=== PATIENT | female | born 1990 | race Hispanic/Latino ===

== ENCOUNTER 2017-05-29 18:22 | Emergency (ER) | payer BC ==
[~2017-05-29] VITALS: Ht 157.5 cm; Wt 102.1 kg
--- OUTSIDE RECORDS SUMMARY | 2017-05-29 18:25 | XMS REPORT | Clinical Summary ---
Author Author [facility] Address Unknown Phone Unavailable Care Team Providers Care Parking Meter Servicer Name Role Phone PCP Unavailable Allergies No Known Allergies Current Medications No known medications Active Problems Not on file Family History Medical History Relation Name Comments Unremarkable Father Unremarkable Mother Diabetes Sister Relation Name Status Comments Father Mother Sister Social History Tobacco Use Types Packs/Day Years Used Date Never Smoker Smokeless Tobacco: Never Used Alcohol Use Drinks/Week oz/Week Comments No Sex Assigned at Date Recorded Not on file Last Filed Vital Signs Not on file Plan of Treatment Not on file Results Not on fileafter 05/28/2016
[2017-05-29] MEDS ORDERED: SODIUM CHLORIDE 0.9% 1000ML 1,000 ML IV SCH (18:45)
[2017-05-29] MEDS ORDERED: ONDANSETRON HCL 4 MG ORAL DISINTEGRATING TAB PO ONE (19:00)
[2017-05-29] MEDS ORDERED: PROMETHAZINE HCL (IM) 25 MG/ML VIAL IM ONE (19:30)
[2017-05-29] MEDS ORDERED: PHENERGAN SUPP25 MG PO (19:51)
[2017-05-29] MEDS ORDERED: ZOFRAN ODT4 MG SL (19:51)
[2017-05-29] MEDS ORDERED: KETOROLAC TROMETHAMINE 30 MG/ML VIAL IV ONE (20:15)
[2017-05-29 20:27] VITALS: BP 110/70
== END 2017-05-29 20:29 | disposition home or self-care (01) ==
LOC: FSED 18:22
DX: R50.9 Fever, unspecified (principal); R11.2 Nausea with vomiting, unspecified; B34.9 Viral infection, unspecified
CPT/HCPCS: 80048; 81003; 81025; 85025; 87400; 96360; 96365; 99283; J1885; J2550

== ENCOUNTER 2017-07-05 13:24 | Emergency (ER) | payer OTHER, BC ==
[~2017-07-05] VITALS: Ht 157.5 cm; Wt 99.3 kg
[~2017-07-05 13:24] MED LIST: PHENERGAN SUPP25 MG PO; ZOFRAN ODT4 MG SL
[2017-07-05 15:58] VITALS: BP 114/64
== END 2017-07-05 16:00 | disposition home or self-care (01) ==
LOC: FSED 13:24
DX: O20.9 Hemorrhage in early pregnancy, unspecified (principal); R10.32 Left lower quadrant pain
CPT/HCPCS: 51701; 76830; 81025; 99283

== ENCOUNTER 2018-02-20 21:44 | Emergency (ER) | payer BC, OTHER ==
[~2018-02-20] VITALS: Ht 157.5 cm; Wt 104.3 kg
--- NOTE | 2018-02-20 23:06 | Diagnostic Imaging Report ---
CXR 2 VIEW - HOPD, Technique: CXR 2 VIEW - HOPD Comparison: None Clinical history: , fever DISCUSSION: The heart size is upper limits of normal. No consolidation or edema. No effusion or pneumothorax. IMPRESSION: No acute abnormality Signed by: Dr Marni Luevano MD on 02/20/2018 11:03 PM
== END 2018-02-20 23:25 | disposition home or self-care (01) ==
LOC: FSED 21:44
DX: B37.2 Candidiasis of skin and nail (principal); E03.9 Hypothyroidism, unspecified
CPT/HCPCS: 71046; 80048; 81003; 85025; 87040; 99283

== ENCOUNTER 2018-12-20 14:39 | Emergency (ER) | payer BC, OTHER ==
[~2018-12-20] VITALS: Ht 157.5 cm; Wt 98.0 kg
--- OUTSIDE RECORDS SUMMARY | 2018-12-20 14:42 | XMS REPORT ---
Author Author [facility] Address Unknown Phone Unavailable Care Team Providers Care Delivery Recruiter Name Role Phone CAT VYAS Unavailable Unavailable FRANCISCO HERNANDEZ Unavailable Unavailable THEE HAGEN Unavailable Unavailable Problems This patient has no known problems. Allergies, Adverse Reactions, Alerts This patient has no known allergies or adverse reactions. Medications This patient has no known medications. Results Test Description Test Time Test Comments Text Results Atomic Results Result Comments CXR 2 VIEW - HOPD 2018-02-20 23:01:00 [place] [address] Patient Name: SCARLET MARIE MR #: [id number] : 1990 Age/Sex: 27/F Req #: [id number] Adm Physician: Ordered by: CAT VYAS MD Report #: [id number] Location: [facility] Room/Bed: Procedure: [id number] HOPD/CXR 2 VIEW - HOPD Exam Date: 02/20/18 Exam Time: 2227 REPORT STATUS: Signed CXR 2 VIEW - HOPD, Technique: CXR 2 VIEW - HOPD Comparison: None Clinical history: , fever DISCUSSION: The heart size is upper limits of normal. No consolidation or edema. No effusion or pneumothorax. IMPRESSION: No acute abnormality Signed by: Dr Zackery Luevano MD on 02/20/2018 11:03 PM Dictated By: ZACKERY LUEVANO MD 02 Transcribed By: BESSIE on 02/20/182302 COPY TO: CAT VYAS MD HCG, QUANTITATIVE, 2017-06-22 18:38:00 GONADOTROPIN, CHORIONIC (HCG) QUANT (EARLE) (test tljl=341) 84 mIU/mL 0-10 Non- Females: <10 mIU/mL Females: Gestation Age Reference Range(mIU/mL) 0.2-1 Week 5-50 1-2 Weeks 50-500 2-3 Weeks 100-5,000 3-4 Weeks 500-10,000 4-5 Weeks 1,000-50,000 5-6 Weeks 10,000-100,000 6-8 Weeks 15,000-200,000 2-3 Months 10,000-100,000 U/S, ENDOVAGINAL, PREG [id number] 17:45:00Reason for exam:-> PROBLEMFINAL REPORT Pelvic ultrasound, first trimester , 06/22/2017. History: , pelvic pain, vaginal spotting. Comparison: None available. Discussion: Transabdominal and transvaginal evaluation of the pelvis was performed in the transverse and longitudinal planes. Color Doppler and spectral waveform analysis was performed of the adnexa bilaterally. The uterus is mildly enlarged measuring 6.5 x 2.6 x 6.1 cm. A hypoechoic anterior intramural mass is noted in the anterior uterine body measuring 2.5 x 2.4 x 2.1 cm. No i ntrauterine gestational sac is visible. Endometrial stripe measures 1.1 cm. The right ovary measures 2.5 x 1.8 x 1.7 cm. The left ovary measures 4.7 x 2.4 x 3.4 cm. Normal arterial and venous flow is identified within both ovaries. There is no evidence of an adnexal mass. There is a small amount of free fluid in the cul-de-sac. IMPRESSION: 1. Uterine fibroid noted.2. No visible intrauterine gestational sac or evidence of ectopic , which may be secondary to very early intrauterine , but ectopic cannot be excluded. Recomm end following serial beta hCGs and short-term follow-up ultrasound if clinically indicated. Signed: Chuck Yangort Verified Date/Time: 06/22/2017 17:4 5:09 Reading Location: [facility] B1 C013W Consult Reading Room Electronically sign ed by: CHUCK YANG M.D. on 06/22/2017 05:45 PM U/S, , FIRST [id number] 17:45:00Reason for exam:-> PROBLEMFINAL REPORT Pelvic ultrasound, first trimester , 06/22/2017. History: , pelvic pain, vaginal spotting. Comparison: None available. Discussion: Transabdominal and transvaginal evaluation of the pelvis was performed in the transverse and longitudinal planes. Color Doppler and spectral waveform analysis was performed of the adnexa bilaterally. The uterus is mildly enlarged measuring 6.5 x 2.6 x 6.1 cm. A hypoechoic anterior intramural mass is noted in the anterior uterine body measuring 2.5 x 2.4 x 2.1 cm. No i ntrauterine gestational sac is visible. Endometrial stripe measures 1.1 cm. The right ovary measures 2.5 x 1.8 x 1.7 cm. The left ovary measures 4.7 x 2.4 x 3.4 cm. Normal arterial and venous flow is identified within both ovaries. There is no evidence of an adnexal mass. There is a small amount of free fluid in the cul-de-sac. IMPRESSION: 1. Uterine fibroid noted.2. No visible intrauterine gestational sac or evidence of ectopic , which may be secondary to very early intrauterine , but ectopic cannot be excluded. Recomm end following serial beta hCGs and short-term follow-up ultrasound if clinically indicated. Signed: Chuck Yang MDReport Verified Date/Time: 06/22/2017 17:4 5:09 Reading Location: [facility] B1 C013W Consult Reading Room Electronically sign ed by: CHUCK YANG M.D. on 06/22/2017 05:45 PM U/S, DUPLEX, DOPPLER 2017-06-22 17:45:00Reason for exam:-> PROBLEMFINAL REPORT Pelvic ultrasound, first trimester , 06/22/2017. History: , pelvic pain, vaginal spotting. Comparison: None available. Discussion: Transabdominal and transvaginal evaluation of the pelvis was performed in the transverse and longitudinal planes. Color Doppler and spectral waveform analysis was performed of the adnexa bilaterally. The uterus is mildly enlarged measuring 6.5 x 2.6 x 6.1 cm. A hypoechoic anterior intramural mass is noted in the anterior uterine body measuring 2.5 x 2.4 x 2.1 cm. No i ntrauterine gestational sac is visible. Endometrial stripe measures 1.1 cm. The right ovary measures 2.5 x 1.8 x 1.7 cm. The left ovary measures 4.7 x 2.4 x 3.4 cm. Normal arterial and venous flow is identified within both ovaries. There is no evidence of an adnexal mass. There is a small amount of free fluid in the cul-de-sac. IMPRESSION: 1. Uterine fibroid noted.2. No visible intrauterine gestational sac or evidence of ectopic , which may be secondary to very early intrauterine , but ectopic cannot be excluded. Recomm end following serial beta hCGs and short-term follow-up ultrasound if clinically indicated. Signed: Chuck Yang [facility] Verified Date/Time: 06/22/2017 17:4 5:09 Reading Location: [facility] B1 C013W Consult Reading Room Electronically sign ed by: CHUCK YANG M.D. on 06/22/2017 05:45 PM URINALYSIS W/ REFLEX URINE [id number] 15:17:00* Test Item Value Reference Range Comments COLOR (BEAKER) (test tkre=056) Yellow CLARITY (BEAKER) (test naev=225) Cloudy SPECIFIC GRAVITY UA (BEAKER) (test dyzw=739) 1.025 1.001-1.035 PH UA (BEAKER) (test ilty=215) 5.5 5.0-8.0 PROTEIN UA (BEAKER) (test fedt=101) Trace Negative GLUCOSE UA (BEAKER) (test nydm=808) Negative Negative KETONES UA (BEAKER) (test zoux=105) Negative Negative BILIRUBIN UA (BEAKER) (test bnia=530) Negative Negative BLOOD UA (BEAKER) (test pcoq=894) Negative Negative NITRITE UA (BEAKER) (test ikww=167) Negative Negative LEUKOCYTE ESTERASE UA (BEAKER) (test hkwg=365) Negative Negative UROBILINOGEN UA (BEAKER) (test umme=824) 0.2 mg/dL 0.2-1.0 BACTERIA (BEAKER) (test wjie=709) Many MUCUS (BEAKER) (test ekeg=8823) Moderate RBC UA-MANUAL (BEAKER) (test iain=5529) <5 /HPF WBC UA-MANUAL (BEAKER) (test lney=0067) 5-10 /HPF SQUAMOUS EPITHELIAL MANUAL (BEAKER) (test ragr=0976) 50-100 /HPF SOURCE(BEAKER) (test vqyd=0875) SCREEN, [id number] 15:10:00* Test Item Value Reference Range Comments TEST URINE (BEAKER) (test yfcj=792) Positive URINALYSIS W/ [id number] 17:30:00* Test Item Value Reference Range Comments COLOR (BEAKER) (test hhcr=029) Yellow CLARITY (BEAKER) (test dqlj=143) Cloudy SPECIFIC GRAVITY UA (BEAKER) (test szlt=550) 1.020 1.001-1.035 PH UA (BEAKER) (test xira=601) 7.0 5.0-8.0 PROTEIN UA (BEAKER) (test ulqx=267) Negative Negative GLUCOSE UA (BEAKER) (test huti=111) Negative Negative KETONES UA (BEAKER) (test spub=621) Negative Negative BILIRUBIN UA (BEAKER) (test tbdi=032) Negative Negative BLOOD UA (BEAKER) (test qxtg=959) Trace Negative NITRITE UA (BEAKER) (test rwva=350) Negative Negative LEUKOCYTE ESTERASE UA (BEAKER) (test zxyh=247) Negative Negative UROBILINOGEN UA (BEAKER) (test kyhk=518) 0.2 mg/dL 0.2-1.0 BACTERIA (BEAKER) (test weah=890) Many MUCUS (BEAKER) (test tvoz=1575) Few RBC UA-MANUAL (BEAKER) (test ykvc=7395) 5-10 /HPF WBC UA-MANUAL (BEAKER) (test blbd=0279) 10-20 /HPF SQUAMOUS EPITHELIAL MANUAL (BEAKER) (test stnm=5699) 20-50 /HPF Clue cells present SOURCE(BEAKER) (test uyzp=9275) SCREEN, [id number] 17:23:00* Test Item Value Reference Range Comments TEST URINE (BEAKER) (test txbi=477) Negative RAD, CHEST, 2 [id number] 17:07:00Reason for exam:->COUGHReason for exam:-> MUSCLE PAINReason for exam:->left chest painIs the patient ?->NoShould this be performed at the bedside?->NoFINAL REPORT TECHNIQUE: Frontal and lateral chest radiographs dated 05/31/2017. CLINICAL HISTORY: Cough, muscle pain COMPARISON STUDY: Chest radiograph dated 05/25/2015 FINDINGS: Lungs are clear. No pleural effusion or pneumothorax. Cardiomediastinal silhouette is normal in size. No pulmonary edema. No bone or soft tissue abnormalities are seen. IMPRESSION: Normal chest radiographs. Signed: Tatiana Santiagoepnuris Verified Date/Time: 05/31/2017 17:07:27 Reading Location: [facility] Radiology Reading Room
== END 2018-12-20 15:56 | disposition home or self-care (01) ==
LOC: FSED 14:39
DX: R50.9 Fever, unspecified (principal); R05 Cough; J02.0 Streptococcal pharyngitis; B34.9 Viral infection, unspecified
CPT/HCPCS: 83518; 87400; 99282

== ENCOUNTER 2022-04-08 12:49 | Emergency (ER) | payer BC ==
[~2022-04-08] VITALS: Ht 157.5 cm; Wt 102.5 kg
[2022-04-08] MEDS ORDERED: ACETAMINOPHEN 325 MG TAB ONE (13:19)
[2022-04-08] MEDS ORDERED: PROVENTIL HFA6.7 GM INH (13:46)
[2022-04-08] MEDS ORDERED: CORICIDIN COLD1 EACH PO (13:49)
[2022-04-08] MEDS ORDERED: AMOXICILLIN500 MG PO (13:49)
[2022-04-08] MEDS ORDERED: ACETAMINOPHEN 325 MG TAB PO ONE (14:00)
== END 2022-04-08 14:14 | disposition home or self-care (01) ==
LOC: FSED 12:58
DX: R05.9 Cough, unspecified (principal); J06.9 Acute upper respiratory infection, unspecified
CPT/HCPCS: 71046; 83518; 87400; 99283

== ENCOUNTER 2023-12-31 10:05 | Emergency (ER) | payer BC ==
[~2023-12-31] VITALS: Ht 157.5 cm; Wt 56.2 kg
[~2023-12-31 10:05] MED LIST changes: +AMOX TR-K CLV1 EAC2 PO; +AMOXICILLIN500 MG PO; +CORICIDIN COLD1 EACH PO; +ONDANSETRON ODT4 MG PO; +PANTOPRAZOLE SO40 MG PO; +PROVENTIL HFA6.7 GM INH
[2023-12-31 10:10] VITALS: PULSE 55; RESP 18; TEMP 98.6
[2023-12-31] MEDS ORDERED: IOPAMIDOL 370 MG/ML 100 ML INFUS..BTL INJ ONE (11:06)
[2023-12-31] MEDS ORDERED: KETOCONAZOLE15 GM TOP (13:24)
[2023-12-31 13:46] VITALS: BP 109/59; PULSE 64; RESP 18; TEMP 98.3; O2SAT 100
== END 2023-12-31 13:50 | disposition home or self-care (01) ==
LOC: FSED 10:11
DX: K42.9 Umbilical hernia without obstruction or gangrene (principal); B35.4 Tinea corporis; Z98.84 Bariatric surgery status
CPT/HCPCS: 74177; 80053; 81003; 81025; 85025; 87071; 87086; 87186; 87205; 99283; Q9967

== ENCOUNTER 2024-03-14 09:24 | Emergency (ER) | payer BC ==
[~2024-03-14] VITALS: Ht 157.5 cm; Wt 55.5 kg
[~2024-03-14 09:24] MED LIST changes: +KETOCONAZOLE15 GM TOP
[2024-03-14] MEDS: KETOROLAC TROMETHAMINE 30 MG/ML VIAL IV ONE (10:13)
[2024-03-14] MEDS: ONDANSETRON HCL INJ 2MG/ML 2ML 2 MG/ML VIAL IV ONE (10:13)
[2024-03-14] MEDS: FAMOTIDINE 20 MG/2 ML VIAL IV ONE (10:13)
[2024-03-14] MEDS ORDERED: IOPAMIDOL 370 MG/ML 100 ML INFUS..BTL INJ ONE (10:39)
[2024-03-14] MEDS ORDERED: LACTATED RINGER'S 1,000 ML ONE (10:56)
[2024-03-14] MEDS: LACTATED RINGER'S 1,000 ML INJ ONE (11:02)
[2024-03-14] MEDS ORDERED: ONDANSETRON ODT4 MG PO (12:44)
[2024-03-14] MEDS ORDERED: CEFDINIR300 MG PO (12:44)
[2024-03-14] MEDS ORDERED: SENNA LAXATIVE8.6 MG PO (12:44)
[2024-03-14] MEDS ORDERED: FLEET ENEMA133 ML PR (12:44)
[2024-03-14] MEDS ORDERED: LACTULOSE20 GM/30 M PO (12:44)
[2024-03-14 13:01] VITALS: PULSE 63; RESP 14; TEMP 98.5; O2SAT 100
== END 2024-03-14 13:01 | disposition home or self-care (01) ==
LOC: FSED 09:33
DX: K59.00 Constipation, unspecified (principal); N39.0 Urinary tract infection, site not specified; R10.9 Unspecified abdominal pain; R11.2 Nausea with vomiting, unspecified; Z98.84 Bariatric surgery status
CPT/HCPCS: 74177; 80053; 81003; 81025; 85025; 96374; 96375; 99284; J0696; J1885; J2405; J7121; Q9967

== ENCOUNTER 2024-09-04 08:31 | Emergency (ER) | payer BC ==
[~2024-09-04] VITALS: Ht 157.5 cm; Wt 54.6 kg
[~2024-09-04 08:31] MED LIST changes: +CEFDINIR300 MG PO; +FLEET ENEMA133 ML PR; +LACTULOSE20 GM/30 M PO; +SENNA LAXATIVE8.6 MG PO
[2024-09-04 08:35] VITALS: PULSE 76; RESP 16; TEMP 98.9
[2024-09-04] MEDS: TRIMETHOPRIM/SULFAMETHOXAZOLE 160-800 MG TAB PO ONE (08:58)
[2024-09-04] MEDS ORDERED: ACETAMINOPHEN-1 EAC4 PO (09:58)
[2024-09-04] MEDS ORDERED: BACTRIM DS TAB1 EACH PO (09:58)
[2024-09-04] MEDS ORDERED: IBUPROFEN600 MG PO (09:58)
[2024-09-04 10:12] VITALS: BP 94/51; PULSE 66; RESP 16; TEMP 98.7; O2SAT 98
== END 2024-09-04 10:11 | disposition home or self-care (01) ==
LOC: FSED 08:34
DX: R10.31 Right lower quadrant pain (principal); N39.0 Urinary tract infection, site not specified; R31.9 Hematuria, unspecified; R30.0 Dysuria; Z98.84 Bariatric surgery status
CPT/HCPCS: 74176; 81003; 81025; 99284

== ENCOUNTER 2024-09-06 21:29 | Emergency (ER) | payer BC ==
[~2024-09-06] VITALS: Ht 157.5 cm; Wt 54.0 kg
[~2024-09-06 21:29] MED LIST changes: +ACETAMINOPHEN-1 EAC4 PO; +BACTRIM DS TAB1 EACH PO; +IBUPROFEN600 MG PO
[2024-09-06] MEDS: KETOROLAC TROMETHAMINE 30 MG/ML VIAL IV STA (22:24)
[2024-09-06] MEDS: ONDANSETRON HCL INJ 2MG/ML 2ML 2 MG/ML VIAL IV STA (22:24)
[2024-09-06] MEDS: CEFTRIAXONE 1 GM VIAL IV ONE (22:24)
[2024-09-06] MEDS: ACETAMINOPHEN 325 MG TAB PO ONE (22:25)
[2024-09-06] MEDS: SODIUM CHLORIDE 0.9% 1000ML 1,000 ML IV ONE (22:25)
[2024-09-06] MEDS ORDERED: CEFPODOXIME PR200 MG PO (23:19)
[2024-09-06 23:30] VITALS: PULSE 74; RESP 18; TEMP 98.9
[2024-09-06 23:40] VITALS: BP 97/51; PULSE 74; RESP 18; TEMP 98.9; O2SAT 98
[2024-09-07] MEDS ORDERED: IBUPROFEN 400 MG TAB ONE (12:03)
== END 2024-09-06 23:12 | disposition home or self-care (01) ==
LOC: FSED 21:40
DX: R30.0 Dysuria (principal); N39.0 Urinary tract infection, site not specified; R11.2 Nausea with vomiting, unspecified; R19.7 Diarrhea, unspecified; Z98.84 Bariatric surgery status
CPT/HCPCS: 80053; 81003; 85025; 87086; 87186; 96374; 96375; 99283; J0696; J1885; J2405; J7030